=== PATIENT | male | born 1930 | race Caucasian/White ===

== ENCOUNTER 2017-05-12 07:34 | Day surgery (SDC) | payer OTHER ==
[~2017-05-12] VITALS: Ht 177.8 cm; Wt 78.5 kg
--- NOTE | ~2017-05-12 | O ---
[facility] [place] [address] OPERATIVE REPORT Name: ISIAH KING Room #: 150-12 [facility]..#: [id number] Admission: 05/12/17 Attend Phys: Bj Hopson MD Discharge: Date of : 32 Report #: [id number] THIS REPORT FOR: //name// CC: Dr. 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 PROCEDURE: Bilateral lower lid ectropion repair with transconjunctival right lower lid and cheek lift. SURGEON: Bj Hopson MD [employer] OPERATOR: None. ANESTHESIA: MAC. COMPLICATIONS: None. 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 He presents today for bilateral lower lid ectropion repair combined with a transconjunctival right lower lid and cheek lift. Surgery is being undertaken in order to improve his ocular surface milieu, level of comfort, and visual quality. Informed consent was obtained to include, but not limited to the potential risk for loss of vision, bleeding, infection, failure to improve the problem, the potential need for further surgery or treatment. DESCRIPTION OF PROCEDURE: The patient was taken to the operating room where 2% Xylocaine with epinephrine mixed with equal parts of 0.75% Marcaine with Wydase was administered transcutaneously and transconjunctivally to each lower lid and lateral canthus. Additionally, on the right side of the temporal fossa and the nasojugal fold was then anesthetized. The patient was subsequently prepped and draped in the usual sterile fashion. Attention was first turned to the left side where the left lateral canthus was clamped with a Sherman clamp. A sharp canthotomy and cantholysis was subsequently performed. Hemostasis was then re-achieved with diligent pinpoint monopolar cautery as it was throughout the case. A tarsal strip was then prepared laterally removing the lash bearing portion of the redundant lid margin [address] [address] OPERATIVE REPORT Name: ISIAH KING Room #: 150-12 [facility]#: [id number] Admission: 05/12/17 Attend Phys: Bj Hopson MD Discharge: Date of : 32 Report #: [id number] and the redundant tarsal plate. Hemostasis was then re-achieved. The tarsal strip was then resecured to the internal portion of the lateral orbital tubercle with interrupted 5-0 Prolene sutures. The subcutaneous structures and the skin were then closed with interrupted 6-0 plain gut sutures. The right lateral canthus was then clamped with a Sherman clamp. A sharp canthotomy and cantholysis was subsequently performed. A tarsal strip was then prepared laterally removing the lash bearing portion of the redundant lid margin and the redundant tarsal plate. A transconjunctival incision was then made below the inferior border of the tarsal plate. The dissection was then carried down into the premalar tissues. Hemostasis was then re-achieved. The lower lid and cheek tissues were then elevated and resuspended with interrupted chromic sutures. This lifted the lower lid and cheek well. Attention was then turned to completion of the ectropion repair. The tarsal strip was then secured to the internal portion of the lateral orbital tubercle with interrupted 5-0 Prolene sutures. The subcutaneous structures and the skin were then closed with interrupted 6-0 plain gut sutures. The wounds were then cleaned and dressed with erythromycin ointment. The patient subsequently transported to the recovery area having tolerated the procedures well with no anesthetic or operative complications being noted. By: [id number] Bj Hopson MD /nt
[~2017-05-12 07:34] MED LIST: ACETAMINOPHEN PO; ALDACTONE25 MG PO; ARTIFICIAL TEA1 EACH OPHTHALMIC; ASPIRIN-DIPYRI1 EACH PO; BYSTOLIC 5 MG5 M1 PO; COMBIVENT RESPIM4 GM INH; COZAAR 50 MG TA50 M2 PO; FISH OIL 1,001000 M2 PO; KLOR-CON 1010 MEQ PO; LASIX 40 MG TAB40 M2 PO; NIACIN 500 MG500 M1 PO; NITROGLYCERIN0.4 MG SUBLING; OMEPRAZOLE MAGN20 MG PO; SIMVASTATIN; SIMVASTATIN PO; XANAX 0.5 MG0.5 MG PO
[2017-05-12 12:52] VITALS: BP 138/74
== END 2017-05-12 15:50 | disposition home or self-care (01) ==
LOC: TBA 07:34 → OR 07:34 → TBA 07:36 → OR 12:47
DX: H02.102 Unspecified ectropion of right lower eyelid (principal); H02.105 Unspecified ectropion of left lower eyelid
CPT/HCPCS: 50010; 50101; 50386; 50398; 51636; 56527; 56531; 62110; 62850; 70005